=== PATIENT | male | born 1965 | race Caucasian/White ===

== ENCOUNTER 2018-01-20 15:15 | Inpatient (IN) | payer OTHER ==
[~2018-01-20] VITALS: Ht 180.3 cm; Wt 98.9 kg
[~2018-01-20 15:15] MED LIST: EFFE75CA PO; S AD PO
[2018-01-20 15:28] VITALS: BP 150/91; PULSE 120; RESP 24; TEMP 99.5; O2SAT 94
[2018-01-20 16:25] VITALS: O2SAT 100
--- NOTE | 2018-01-20 16:35 | PD ---
HPI Chief Complaint: Suicide Ideation/Attempt Time Seen by Provider: 15:37 Travel History International Travel<30 days: No Contact w/Intl Traveler<30days: No Traveled to known affect area: No History of Present Illness HPI This patient presents under police Crespo act. He was feeling depressed and suicidal. Symptoms are severe. He called the suicide hotline. He locked himself in the garage and turned on his car and tried to get carbon monoxide poisoning. However he says he was only in the garage for a few minutes. He denies dyspnea. He feels depressed and grumpy but denies any physical complaint. Denies alcohol or drug abuse in the recent past. No history of IV drug use. He has been 5 years sober from alcohol. No alleviating factors. No exacerbating factors. Duration 1 month PFSH Past Medical History Anxiety: Yes Depression: Yes Diminished Hearing: No Psychiatric: Yes (PTSD, ANXIETY, DEPRESSION) Reproductive: Yes Tetanus Vaccination: Unknown Past Surgical History Oral Surgery: Yes (JAW SURGERY) Tonsillectomy: Yes Social History Alcohol Use: No (SOBER 5 YEARS) Tobacco Use: No Substance Use: No Allergies-Medications (Allergen,Severity, Reaction): Coded Allergies: No Known Allergies (Unverified Allergy, Unknown, 01/20/18) Reported Meds & Prescriptions Reported Meds & Active Scripts Active Active Prescriptions or Reported Medications Unobtainable Review of Systems General / Constitutional: No: Fever Eyes: No: Visual changes HENT: No: Headaches Cardiovascular: No: Chest Pain or Discomfort Respiratory: No: Shortness of Breath Gastrointestinal: No: Abdominal Pain Genitourinary: No: Dysuria Musculoskeletal: No: Pain Skin: No Rash Neurologic: No: Weakness Psychiatric: Positive: Depression, Suicidal Ideations Endocrine: No: Polydipsia Hematologic/Lymphatic: No: Easy Bruising Physical Exam Narrative GENERAL: Well-nourished, well-developed patient in no apparent distress. SKIN: Focused skin assessment reveals no rash and nodules. Skin is Warm and dry. HEAD: Atraumatic. Normocephalic. EYES: Pupils equal and round. No scleral icterus. No injection or drainage. ENT: No nasal bleeding or discharge. Mucous membranes pink and moist. NECK: Trachea midline. No JVD. CARDIOVASCULAR: Regular rate and rhythm. No murmur appreciated. RESPIRATORY: No accessory muscle use. Clear to auscultation. Breath sounds equal bilaterally. GASTROINTESTINAL: Abdomen soft, non-tender, nondistended. Hepatic and splenic margins not palpable. MUSCULOSKELETAL: No obvious deformities. No clubbing. No cyanosis. No edema. NEUROLOGICAL: Awake and alert. No obvious cranial nerve deficits. Motor grossly within normal limits. Normal speech. PSYCHIATRIC: Depressed mood and flat affect; insight and judgment poor Data Data Last Documented VS Vital Signs Date Time Temp Pulse Resp B/P (MAP) Pulse Ox O2 Delivery O2 Flow Rate FiO2 01/20/18 17:27 90 20 98 Non-Rebreather 01/20/18 15:37 15.00 01/20/18 15:28 99.5 150/91 (110) Orders Orders Arterial Blood Gas (Abg) (01/20/18 ) Complete Blood Count With Diff (01/20/18 16:19) Comprehensive Metabolic Panel (01/20/18 16:19) Thyroid Stimulating Hormone (01/20/18 16:19) Electrocardiogram (01/20/18 16:19) Oximetry (01/20/18 16:19) Iv Access Insert/Monitor (01/20/18 16:19) Ecg Monitoring (01/20/18 16:19) Oxygen Administration (01/20/18 16:19) Psych Screen (01/20/18 16:19) Drug Screen, Random Urine (01/20/18 16:19) Alcohol (Ethanol) (01/20/18 16:19) Chest, Single Ap (01/20/18 ) Sodium Chlor 0.9% 1000 Ml Inj (Ns 1000 M (01/20/18 18:00) Admit Order (Ed Use Only) (01/20/18 18:21) Labs Laboratory Tests Test 01/20/18 15:32 01/20/18 16:25 Blood Gas Puncture Site RT RADIAL Blood Gas Patient Temperature 98.6 Blood Gas HCO3 16 mmol/L Blood Gas Base Excess -7.9 mmol/L Blood Gas Oxygen Saturation 93 % Arterial Blood pH 7.38 Arterial Blood Partial Pressure CO2 28 mmHg Arterial Blood Partial Pressure O2 73 mmHG Arterial Blood Oxygen Content 22.9 Vol % Arterial Blood Carboxyhemoglobin 1.0 % Arterial Blood Methemoglobin 0.7 % Blood Gas Hemoglobin 17.6 G/DL Blood Gas Inspired Oxygen 21 % White Blood Count 8.3 TH/MM3 Red Blood Count 5.92 MIL/MM3 Hemoglobin 17.4 GM/DL Hematocrit 51.3 % Mean Corpuscular Volume 86.5 FL Mean Corpuscular Hemoglobin 29.4 PG Mean Corpuscular Hemoglobin Concent 33.9 % Red Cell Distribution Width 13.9 % Platelet Count 289 TH/MM3 Mean Platelet Volume 8.3 FL Neutrophils (%) (Auto) 86.1 % Lymphocytes (%) (Auto) 8.4 % Monocytes (%) (Auto) 5.2 % Eosinophils (%) (Auto) 0.1 % Basophils (%) (Auto) 0.2 % Neutrophils # (Auto) 7.1 TH/MM3 Lymphocytes # (Auto) 0.7 TH/MM3 Monocytes # (Auto) 0.4 TH/MM3 Eosinophils # (Auto) 0.0 TH/MM3 Basophils # (Auto) 0.0 TH/MM3 CBC Comment DIFF FINAL Differential Comment Blood Urea Nitrogen 30 MG/DL Creatinine 1.35 MG/DL Random Glucose 129 MG/DL Total Protein 7.4 GM/DL Albumin 4.4 GM/DL Calcium Level 9.4 MG/DL Alkaline Phosphatase 52 U/L Aspartate Amino Transf (AST/SGOT) 20 U/L Alanine Aminotransferase (ALT/SGPT) 47 U/L Total Bilirubin 1.0 MG/DL Sodium Level 138 MEQ/L Potassium Level 4.0 MEQ/L Chloride Level 105 MEQ/L Carbon Dioxide Level 15.6 MEQ/L Anion Gap 17 MEQ/L Estimat Glomerular Filtration Rate 56 ML/MIN Thyroid Stimulating Hormone 3rd Gen 0.431 uIU/ML Urine Opiates Screen NEG Urine Barbiturates Screen NEG Urine Amphetamines Screen NEG Urine Benzodiazepines Screen NEG Urine Cocaine Screen NEG Urine Cannabinoids Screen NEG Ethyl Alcohol Level LESS THAN 3 MG/DL MDM Medical Decision Making Medical Screen Exam Complete: Yes Emergency Medical Condition: Yes Medical Record Reviewed: Yes Differential Diagnosis Depression, suicidal ideation, carbon monoxide poisoning Narrative Course I have reviewed the patient's electronic medical record. I reviewed the Crespo act filled out by police IV placed and labs sent I placed him on 100% nonrebreather while we evaluated him Mental status is normal Paramedics arrived patient reports that he was playing possum. He did not feel like talking to them. He initially was pretending to be unresponsive when he arrived here. After the nurse suggested they obtain a rectal temperature, immediately woke up and said that won't be necessary ABG was done. His carbon monoxide is 1 His pH is normal Bicarbonate is low and CO2 is compensated for normal pH Lab studies ordered and psych screen ordered as he is here under Crespo act I switched him to nasal cannula. After while of that I put him on room air and he is saturating well. I reviewed his chest x-ray which is normal General labs are reasonably normal as well As noted he only was in the enclosed garage for a couple of minutes. He is stable for psychiatric admission. Diagnosis Primary Impression: Suicidal ideations Additional Impressions: Major depression Qualified Codes: F32.9 - Major depressive disorder, single episode, unspecified Carbon monoxide exposure Admitting Information Admitting Physician Requests: Admit Scripts Unable to Obtain Active Prescriptions or Reported Meds Sunny Pugh MD Jan 20, 2018 16:35
[2018-01-20 17:06] LABS: AUTOMATED NEUTROPHIL # 7.1 TH/MM3 (1.8-7.7); BASOPHIL % 0.2 % (0.0-2.0); EOSINOPHIL % 0.1 % (0.0-4.0); HEMATOCRIT 51.3 % (39.0-51.0); HEMOGLOBIN 17.4 GM/DL (13.0-17.0); LYMPH % 8.4 % (9.0-44.0); LYMPHOCYTE # 0.7 TH/MM3 (1.0-4.8); MEAN CELL VOLUME 86.5 FL (80.0-100.0); MEAN CORPUSCULAR HEMOGLOBIN 29.4 PG (27.0-34.0); MEAN CORPUSCULAR HGB CONC 33.9 % (32.0-36.0); MEAN PLATELET VOLUME 8.3 FL (7.0-11.0); MONO % 5.2 % (0.0-8.0); MONOCYTE # 0.4 TH/MM3 (0-0.9); NEUT % 86.1 % (16.0-70.0); PLATELET COUNT 289 TH/MM3 (150-450); RED BLOOD COUNT 5.92 MIL/MM3 (4.50-5.90); RED CELL DISTRIBUTION WIDTH 13.9 % (11.6-17.2); WHITE BLOOD COUNT 8.3 TH/MM3 (4.0-11.0)
[2018-01-20 17:20] LABS: ALBUMIN 4.4 GM/DL (3.4-5.0); AST (GOT) 20 U/L (15-37); BICARBONATE 15.6 MEQ/L (21.0-32.0); BLOOD UREA NITROGEN 30 MG/DL (7-18); CALCIUM 9.4 MG/DL (8.5-10.1); CHLORIDE 105 MEQ/L (98-107); CREATININE 1.35 MG/DL (0.60-1.30); GLOMERULAR FILTRATION RATE 56 ML/MIN (>89); GLUCOSE,RANDOM 129 MG/DL (74-106); SODIUM (NA) 138 MEQ/L (136-145)
[2018-01-20 17:22] LABS: ALT (GPT) 47 U/L (12-78)
[2018-01-20 17:27] VITALS: PULSE 90; RESP 20; O2SAT 98
[2018-01-20 17:31] LABS: ALKALINE PHOSPHATASE 52 U/L (45-117); TOTAL PROTEIN 7.4 GM/DL (6.4-8.2)
[2018-01-20] MEDS ORDERED: SODIUM CHLOR 0.9% 1000 ML INJ 1,000 ML IV ONE (18:00)
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
[2018-01-20] MEDS ORDERED: ALUMINUM/MAGNESIUM/SIMETH 30 ML CUP PO PRN (18:30)
[2018-01-20] MEDS ORDERED: MAGNESIUM HYDROXIDE SUSP 30 ML CUP PO PRN (18:30)
[2018-01-20] MEDS ORDERED: ACETAMINOPHEN 325 MG TAB PO PRN (18:30)
--- NOTE | 2018-01-20 19:03 | RADRPT ---
EXAM DATE: 01/20/2018 6:59 PM EDT AGE/SEX: 52 years / Male INDICATIONS: Chest pain. Short of breath. CLINICAL DATA: This is the patient's initial encounter. Patient reports that signs and symptoms have been present for 1 day and indicates a pain score of Nonresponsive. MEDICAL/SURGICAL HISTORY: Non-responsive. Non-responsive. COMPARISON: No prior exams available for comparison. FINDINGS: A single AP view of the chest demonstrates the lungs to be symmetrically aerated without evidence of mass, infiltrate or effusion. The cardiomediastinal contours are unremarkable. Tortuous thoracic ao rta. Slight elevation right hemidiaphragm. Osseous structures are intact. CONCLUSION: Slight elevation right hemidiaphragm. No infiltrate. Electronically signed by: Zachary Vazquez MD 01/20/2018 7:02 PM EDT
[2018-01-20 19:30] VITALS: BP 131/93; PULSE 95; RESP 16; TEMP 98.4; O2SAT 96
[2018-01-21 05:51] VITALS: BP 124/74; PULSE 77; RESP 16; TEMP 97.3; O2SAT 96
[2018-01-21 08:03] LABS: BICARBONATE 21.6 MEQ/L (21.0-32.0); BLOOD UREA NITROGEN 24 MG/DL (7-18); CALCIUM 8.9 MG/DL (8.5-10.1); CHLORIDE 109 MEQ/L (98-107); CHOLESTEROL 165 MG/DL (120-200); CREATININE 1.19 MG/DL (0.60-1.30); GLOMERULAR FILTRATION RATE 64 ML/MIN (>89); GLUCOSE,RANDOM 100 MG/DL (74-106); SODIUM (NA) 142 MEQ/L (136-145)
[2018-01-21 08:06] LABS: CHOLESTEROL/ HDL RATIO 5.39 RATIO; HDL CHOLESTEROL 30.6 MG/DL (40.0-60.0); LDL CHOLESTEROL 118 MG/DL (0-99); TRIGLYCERIDES 81 MG/DL (42-150)
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
[2018-01-21 16:53] LABS: HEMOGLOBIN A1C 5.9 % (4.3-6.0)
--- NOTE | 2018-01-21 19:13 | EKG ---
Date Performed: 01/20/2018 Time Performed: 15:37:03 PTAGE: 52 years EKG: SINUS TACHYCARDIA INCOMPLETE RIGHT BUNDLE BRANCH BLOCK MINIMAL VOLTAGE CRITERIA FOR LVH, CO NSIDER NORMAL VARIANT ABNORMAL RHYTHM ECG PREVIOUS TRACING :01/28/2013 @09.15 When compared to prior EKG,patient is now tachycardic DOCTOR: Eve Flores Interpretating Date/Time 01/21/2018 19:11:58
== END 2018-01-21 14:50 | disposition home or self-care (01) | DRG 882 ==
LOC: NEPC 15:15 → NEDA 18:23 → H260 20:03
PROVIDERS: ADMIT Psychiatry & Neurology Psychiatry; ATTEND Psychiatry & Neurology Psychiatry
DX: F43.25 Adjustment disorder with mixed disturbance of emotions and conduct (principal); N17.9 Acute kidney failure, unspecified; R45.851 Suicidal ideations; D75.1 Secondary polycythemia; F41.9 Anxiety disorder, unspecified; Z91.5 Personal history of self-harm; E86.0 Dehydration; F10.21 Alcohol dependence, in remission; F32.9 Major depressive disorder, single episode, unspecified; F43.10 Post-traumatic stress disorder, unspecified; Z62.810 Personal history of physical and sexual abuse in childhood; Z77.29 Contact with and (suspected) exposure to other hazardous substances; Z87.891 Personal history of nicotine dependence
CPT/HCPCS: 36600; 71045; 80048; 80053; 80061; 80307; 82805; 83036; 84443; 85025; 93005; J7030